=== PATIENT | female | born 1985 | race American Indian/Alaskan Native ===

== ENCOUNTER 2017-01-17 14:16 | Emergency (ER) | payer SELFPAY ==
[2017-01-17 14:27] VITALS: BP 161/112
[2017-01-17 15:13] LABS: Basophils % (Auto) 0.6 % (0.0-1.8); Eosinophils % (Auto) 2.7 % (0.0-4.3); Hematocrit 38.7 % (30.3-42.9); Hemoglobin 12.9 gm/dl (10.1-14.3); Mean Corpuscular HGB Conc 33 % (30-34); Mean Corpuscular Hemoglobin 31 pg (28-32); Mean Corpuscular Volume 93 fl (79-97); Platelet Count 353 K/mm3 (140-440); Red Blood Count 4.15 M/mm3 (3.65-5.03); White Blood Count 9.8 K/mm3 (4.5-11.0)
[2017-01-17 15:25] LABS: Bilirubin,Urine NEG (Negative); Blood,Urine SM (Negative); Ketones,Urine NEG (Negative); Leukocyte Esterase,Urine TR (Negative); Mucus,Urine 1+ /HPF; Nitrite,Urine NEG (Negative)
[2017-01-17 15:30] LABS: Alanine Aminotransferase 23 units/L (7-56); Albumin 4.6 g/dL (3.9-5); Albumin/Globulin Ratio 1.4 %; Alkaline Phosphatase 125 units/L (35-129); Anion Gap 17 mmol/L; BUN/Creatinine Ratio 18.33; Bilirubin,Total 0.2 mg/dL (0.1-1.2); Blood Urea Nitrogen 11 mg/dL (7-17); Calcium 9.6 mg/dL (8.4-10.2); Carbon Dioxide 25 mmol/L (22-30); Chloride 101.5 mmol/L (98-107); Glucose 88 mg/dL (65-100); Lipase 12 units/L (13-60); Potassium 4.4 mmol/L (3.6-5.0); Sodium 139 mmol/L (137-145); Total Protein 7.8 g/dL (6.3-8.2)
--- NOTE | 2017-01-19 11:11 | ED Elopement Review ---
ED Pt Elopement review - Results review Lab results: Laboratory Tests 01/17/17 01/17/17 01/17/17 14:55 15:00 15:00 WBC 9.8 RBC 4.15 Hgb 12.9 Hct 38.7 MCV 93 MCH 31 MCHC 33 RDW 16.0 H Plt Count 353 Lymph % (Auto) 24.2 [place] % (Auto) 7.9 H Eos % (Auto) 2.7 Baso % (Auto) 0.6 Lymph # 2.4 [place] # 0.8 Eos # 0.3 Baso # 0.1 Seg Neutrophils % 64.6 Seg Neutrophils # 6.3 Sodium 139 Potassium 4.4 Chloride 101.5 Carbon Dioxide 25 Anion Gap 17 BUN 11 Creatinine 0.6 L Estimated GFR > 60 BUN/Creatinine Ratio 18.33 Glucose 88 Calcium 9.6 Total Bilirubin 0.2 AST 23 ALT 23 Alkaline Phosphatase 125 Total Protein 7.8 Albumin 4.6 Albumin/Globulin Ratio 1.4 Lipase 12 L Urine Color Yellow Urine Turbidity Clear Urine pH 6.0 Ur Specific [place] 1.021 Urine Protein 30 mg/dl Urine Glucose (UA) Neg Urine Ketones Neg Urine Blood Sm Urine Nitrite Neg Urine Bilirubin Neg Urine Urobilinogen 2.0 Ur Leukocyte Esterase Tr Urine WBC (Auto) 1.0 Urine RBC (Auto) 3.0 U Epithel Cells (Auto) 3.0 Urine Mucus 1+ Urine HCG, Qual Negative - Call Back decision Pt Call Back Decision: No action required
== END 2017-01-17 15:40 | disposition left against medical advice (07) ==
LOC: ED 14:16
DX: R10.9 Unspecified abdominal pain (principal); R11.2 Nausea with vomiting, unspecified; R19.7 Diarrhea, unspecified; Z53.21 Procedure and treatment not carried out due to patient leaving prior to being seen by health care provider
CPT/HCPCS: 36415; 80053; 81001; 81025; 83690; 85025

== ENCOUNTER 2022-02-12 11:40 | Emergency (ER) | payer MEDICAID | END 2022-02-12 15:00 | disposition left against medical advice (07) | LOC: ED 11:40 | DX: R11.0 Nausea (principal); M54.9 Dorsalgia, unspecified; Z53.21 Procedure and treatment not carried out due to patient leaving prior to being seen by health care provider ==